=== PATIENT | male | born 1985 | race Caucasian/White ===

== ENCOUNTER 2021-12-30 21:57 | Emergency (ER) | payer SELFPAY ==
[~2021-12-30] VITALS: Ht 175.3 cm; Wt 81.7 kg
[2021-12-30] MEDS ORDERED: KETOROLAC 30 MG/ML VIAL IVP STA (22:31)
--- NOTE | 2021-12-30 22:33 | ED General ---
General Chief Complaint: General Problems/Pain Stated Complaint: DX W/ MONO/BILAT EAR PAIN Source of Information: Patient History of Present Illness Date Seen by Provider: Dec 30, 2021 Time Seen by Provider: 22:22 Initial Comments PT ARRIVES VIA POV FROM HOME C/O SEVERE SORE THROAT STATES HE BEGAN HAVING A SORE THROAT LAST Sunday12/23/21, WENT TO [facility] ON SUNDAY AND WAS DX WITH MONO. NO RX'S GIVEN NO FEVER C/O BILATERAL EAR PAIN STATES HE IS HERE TONIGHT "BECAUSE OF THE ALARMINGLY LARGE AMOUNT OF BLOOD EMANATING FROM MY THROAT" FOR THE LAST 2-3 DAYS STATES HE HAS BEEN "COUGHING UP AND THROWING UP BLOOD" NO ABDOMINAL PAIN NO ACTUAL NAUSEA STATES HE HAS BEEN TAKING 1000 MG ACETAMINOPHEN AND 1000 MG OF IBUPROFEN ALL DAY AND ALL NIGHT EVERY DAY FOR THE LAST WEEK--NO RELIEF HAS NOT BEEN EATING OR DRINKING VERY MUCH DUE TO SEVERE PAIN PT IS NOT ON ASPIRIN OR ANY BLOOD THINNERS PT IS TYPE 1 DIABETIC IN LEVEMIR AND NOVOLOG--STATES HE HAS NOT TAKEN HIS INSULIN TODAY DUE TO "LOW BLOOD SUGARS" BUT BLOOD GLUCOSE WAS 240'S TONIGHT, AFTER HE TRIED TO EAT PIZZA. HAS NOT ATTEMPTED TO FOLLOW UP WITH ANYONE SINCE SUNDAY FOR THIS PROBLEM ( NOW IS SUNDAY NIGHT) PCP: Taylor [facility] IN [place], [place]--HAD A TELEHEALTH VISIT IN OCTOBER . NO MEDICATION CHANGES. Allergies and Home Medications Allergies Coded Allergies: No Known Drug Allergies (Unverified , 12/30/21) Review of Systems Review of Systems Constitutional: see HPI; No fever; malaise, weakness EENTM: see HPI, ear pain, throat pain, throat swelling Respiratory: cough; No short of breath Cardiovascular: no symptoms reported Gastrointestinal: see HPI Genitourinary: frequency Musculoskeletal: other (BODY ACHES) Skin: no symptoms reported Psychiatric/Neurological: No Symptoms Reported Hematologic/Lymphatic: No Symptoms Reported Immunological/Allergic: no symptoms reported Past Wpfdhzo-Ddhmce-Nmtkoa Hx Patient Social History Tobacco Use?: Yes Tobacco type used: Cigarettes Substance use?: Yes Substance type: Marijuana Substance frequency: Daily Alcohol Use?: Yes Alcohol Frequency: Once in a while Immunizations Up To Date Influenza Vaccine Up-to-Date: No; Not Current Past Medical History Surgeries: No Respiratory: No Cardiac: No Neurological: No Genitourinary: No Gastrointestinal: No Musculoskeletal: No Endocrine: Yes (TYPE 1 DIABETES DX AGE 21) Diabetes, Insulin dep HEENT: No Cancer: No Psychosocial: No Integumentary: No Blood Disorders: No Family Medical History SOCIAL HISTORY: -SMOKES 1 PPD -ETOH--OCCASIONAL USE -DRUGS--REGULAR MARIJUANA USE Physical Exam Vital Signs Vital Signs - First Documented 12/30/21 22:14 Temp 36.7 Pulse 80 Resp 16 B/P (MAP) 161/93 (115) Pulse Ox 96 O2 Delivery Room Air Capillary Refill : Height, Weight, BMI Height: '" Weight: lbs. oz. kg; BMI Method: General Appearance: No Apparent Distress, WD/WN, Other (MOVES AND TALKS SLOWLY, FREQUENT SIGHING) HEENT: PERRL/EOMI; No Photophobia; Tonsillar Exudate, Tonsillar Enlargement, Other (TM'S SCLEROTIC. NO ERYTHEMA NOTED. RIGHT TONSIL IS ENLARGED 2+/4 IN SIZE, VERY CRYPTIC WITH EXTENSIVE EXUDATE. LEFT TONSIL IS COMPLETELY OBSCURED BY A VERY LARGE CLOT. NO ACTIVE BLEEDING NOTED AT THIS TIME. NO EVIDENCE OF PERITONSILLAR ABSCESS AT THIS TIME. TONSILS DO NOT TOUCH. UVULA IS MIDLINE. VOICE IS MUFFLED. ) Neck: Supple, Lymphadenopathy (L), Lymphadenopathy (R) Respiratory: Normal Breath Sounds, No Accessory Muscle Use, No Respiratory Distress Cardiovascular: No Murmur Gastrointestinal: Non Tender, Soft Extremity: Normal Capillary Refill, No Pedal Edema Neurologic/Psychiatric: Alert, Oriented x3, No Motor/Sensory Deficits, field service supervisor II- XII Norm as Tested Skin: Warm/Dry, Pallor Focused Exam Lactate Level 12/30/21 22:58: Lactic Acid Level 1.49 Lactic Acid Level Laboratory Tests Test 12/30/21 22:58 Lactic Acid Level 1.49 MMOL/L (0.50-2.00) Progress/Results/Core Measures Suspected Sepsis SIRS Temperature: Pulse: Respiratory Rate: Laboratory Tests 12/30/21 22:58: White Blood Count 18.4H Blood Pressure / Mean: 12/30/21 22:58: Lactic Acid Level 1.49 Laboratory Tests 12/30/21 22:58: Creatinine 0.82, Platelet Count 411H, Total Bilirubin 0.9 Results/Orders Lab Results Laboratory Tests Test 12/30/21 22:58 12/30/21 23:08 12/31/21 00:35 12/31/21 02:44 Range/Units White Blood Count 18.4 H 4.3-11.0 10^3/uL Red Blood Count 4.91 4.30-5.52 10^6/uL Hemoglobin 13.5 13.3-17.7 g/dL Hematocrit 40 40-54 % Mean Corpuscular Volume 82 80-99 fL Mean Corpuscular Hemoglobin 28 25-34 pg Mean Corpuscular Hemoglobin Concent 33 32-36 g/dL Red Cell Distribution Width 14.1 10.0-14.5 % Platelet Count 411 H 130-400 10^3/uL Mean Platelet Volume 9.9 9.0-12.2 fL Immature Granulocyte % (Auto) 1 % Neutrophils (%) (Auto) 52 42-75 % Lymphocytes (%) (Auto) 34 12-44 % Monocytes (%) (Auto) 13 H 0-12 % Eosinophils (%) (Auto) 0 0-10 % Basophils (%) (Auto) 1 0-10 % Neutrophils # (Auto) 9.7 H 1.8-7.8 10^3/uL Lymphocytes # (Auto) 6.2 H 1.0-4.0 10^3/uL Monocytes # (Auto) 2.4 H 0.0-1.0 10^3/uL Eosinophils # (Auto) 0.0 0.0-0.3 10^3/uL Basophils # (Auto) 0.1 0.0-0.1 10^3/uL Immature Granulocyte # (Auto) 0.1 0.0-0.1 10^3/uL Neutrophils % (Manual) 61 % Lymphocytes % (Manual) 18 % Monocytes % (Manual) 8 % Eosinophils % (Manual) 1 % Band Neutrophils 1 % Atypical Lymphocytes 11 % Poikilocytosis SLIGHT Sodium Level 133 L 135-145 MMOL/L Potassium Level 3.6 3.6-5.0 MMOL/L Chloride Level 95 L 98-107 MMOL/L Carbon Dioxide Level 22 21-32 MMOL/L Anion Gap 16 H 5-14 MMOL/L Blood Urea Nitrogen 8 7-18 MG/DL Creatinine 0.82 0.60-1.30 MG/DL Estimat Glomerular Filtration Rate 118 BUN/Creatinine Ratio 10 Glucose Level 259 H 70-105 MG/DL Lactic Acid Level 1.49 0.50-2.00 MMOL/L Calcium Level 9.3 8.5-10.1 MG/DL Corrected Calcium 9.4 8.5-10.1 MG/DL Total Bilirubin 0.9 0.1-1.0 MG/DL Aspartate Amino Transf (AST/SGOT) 153 H 5-34 U/L Alanine Aminotransferase (ALT/SGPT) 188 H 0-55 U/L Alkaline Phosphatase 165 H 40-136 U/L Total Protein 7.1 6.4-8.2 GM/DL Albumin 3.9 3.2-4.5 GM/DL Beta-Hydroxybutyrate (Chem panel) 1.71 H 0.00-0.27 MMOL/L Procalcitonin 0.84 H <0.10 NG/ML Monoscreen POSITIVE H NEGATIVE Glucometer 240 H 208 H 70-110 MG/DL Urine Color YELLOW Urine Clarity CLEAR Urine pH 6.0 5-9 Urine Specific Robbins <=1.005 1.016-1.022 Urine Protein NEGATIVE NEGATIVE Urine Glucose (UA) 2+ H NEGATIVE Urine Ketones 2+ H NEGATIVE Urine Nitrite NEGATIVE NEGATIVE Urine Bilirubin NEGATIVE NEGATIVE Urine Urobilinogen 0.2 < = 1.0 MG/DL Urine Leukocyte Esterase NEGATIVE NEGATIVE Urine RBC (Auto) NEGATIVE NEGATIVE Urine RBC NONE /HPF Urine WBC NONE /HPF Urine Crystals NONE /LPF Urine Bacteria NEGATIVE /HPF Urine Casts NONE /LPF Urine Mucus NEGATIVE /LPF Urine Culture Indicated NO Urine Opiates Screen NEGATIVE NEGATIVE Urine Oxycodone Screen NEGATIVE NEGATIVE Urine Methadone Screen NEGATIVE NEGATIVE Urine Propoxyphene Screen NEGATIVE NEGATIVE Urine Barbiturates Screen NEGATIVE NEGATIVE Ur Tricyclic Antidepressants Screen NEGATIVE NEGATIVE Urine Phencyclidine Screen NEGATIVE NEGATIVE Urine Amphetamines Screen NEGATIVE NEGATIVE Urine Methamphetamines Screen NEGATIVE NEGATIVE Urine Benzodiazepines Screen NEGATIVE NEGATIVE Urine Cocaine Screen NEGATIVE NEGATIVE Urine Cannabinoids Screen POSITIVE H NEGATIVE My Orders Orders - KATELIN,SU K DO Accucheck Stat ONCE (12/30/21 22:31) Ed Iv/Invasive Line Start (12/30/21 22:31) Monitor-Rhythm Ecg Trace Only (12/30/21 22:31) Cbc With Automated Diff (12/30/21 22:31) Comprehensive Metabolic Panel (12/30/21 22:31) Lactic Acid Analyzer (12/30/21 22:31) Monotest (12/30/21 22:31) Procalcitonin (Pct) (12/30/21 22:31) Ed Iv/Invasive Line Start (12/30/21 22:31) Ns Iv 1000 Ml (Sodium Chloride 0.9%) (12/30/21 22:45) Ketorolac Injection (Toradol Injection) (12/30/21 22:31) Manual Differential (12/30/21 22:58) Beta Hydroxybutyrate (12/30/21 23:58) Ed Iv/Invasive Line Start (12/30/21 23:58) Ns Iv 1000 Ml (Sodium Chloride 0.9%) (12/31/21 00:00) Ct Neck (Soft Tissue) W (12/31/21 00:01) Drug Screen Stat (Urine) (12/31/21 00:25) Ua Culture If Indicated (12/31/21 00:25) Iohexol Injection (Omnipaque 350 Mg/Ml 1 (12/31/21 00:30) Received Contrast (Hold Metformin- Contr (12/31/21 00:30) Sodium Chloride Flush (Catheter Flush Sy (12/31/21 00:30) Ns (Ivpb) (Sodium Chloride 0.9% Ivpb Bag (12/31/21 00:30) Accucheck Stat ONCE (12/31/21 02:20) Ed Iv/Invasive Line Start (12/31/21 02:20) Fentanyl Inj (Sublimaze Injection) (12/31/21 02:20) Ns Iv 1000 Ml (Sodium Chloride 0.9%) (12/31/21 02:30) Medications Given in ED Current Medications Medications Dose Ordered Sig/Zhou Route Start Time Stop Time Status Last Admin Dose Admin Iohexol 100 ml ONCE ONCE IV 12/31/21 00:30 12/31/21 00:31 DC 12/31/21 00:30 75 ML Sodium Chloride 10 ml NEEDED PRN IV 12/31/21 00:30 12/31/21 00:30 10 ML Sodium Chloride 100 ml ONCE ONCE IV 12/31/21 00:30 12/31/21 00:31 DC 12/31/21 00:30 80 ML Vital Signs/I&O 12/30/21 3 22:14 03:44 Temp 36.7 36.7 Pulse 80 82 Resp 16 16 B/P (MAP) 161/93 (115) 148/75 Pulse Ox 96 95 O2 Delivery Room Air Room Air Capillary Refill : Progress Note : Progress Note GIVEN IV FLUIDS AND TORADOL, AND LATER FENTANYL FOR PAIN REPEAT ACCUCHECK 208 NO DETERIORATION IN PT'S CONDITION DURING ER STAY. DELAY DUE TO PT INDECISIVE ABOUT WANTING TO BE TRANSFERRED AND WHERE TO AND HOW HE WOULD BE TRANSPORTED. Diagnostic Imaging Comments CT NECK SOFT TISSUES--LEFT > RIGHT PERITONSILLAR HYPERDENSE COLLECTIONS, LEFT SIDED COLLECTION HAS SMALL AMOUNT OF GAS AND APPEARS TO COMMUNICATE WITH THE OROPHARYNX. MINIMAL ENHANCEMENT OF THE HOLGUIN. ASSOCIATED EXTENSIVE BILATERAL ADENOPATHY--PER [facility] VIA FAX AT 0102 Departure Impression Primary Impression: Mononucleosis Additional Impressions: IDDM TYPE 1 Hyperglycemia due to type 1 diabetes mellitus Ketosis due to diabetes Mononucleosis, infectious, with hepatitis Hemorrhage of left tonsil Dehydration Departure-Patient Inst. Referrals: NO,LOCAL PHYSICIAN (PCP/Family) Primary Care Physician SU THOMASON DO Dec 30, 2021 22:33
[2021-12-30] MEDS ORDERED: NS IV 1000 ML 1,000 ML IV SCH (22:45)
[2021-12-30 23:12] LABS: BASOPHILS # (AUTO) 0.1 10^3/uL (0.0-0.1); BASOPHILS % (AUTO) 1 % (0-10); EOSINOPHILS % (AUTO) 0 % (0-10); HEMATOCRIT 40 % (40-54); HEMOGLOBIN 13.5 g/dL (13.3-17.7); LYMPHOCYTES # (AUTO) 6.2 10^3/uL (1.0-4.0); LYMPHOCYTES % (AUTO) 34 % (12-44); MEAN CORPUSCULAR HEMOGLOBIN 28 pg (25-34); MEAN CORPUSCULAR HGB CONC 33 g/dL (32-36); MEAN CORPUSCULAR VOLUME 82 fL (80-99); MEAN PLATELET VOLUME 9.9 fL (9.0-12.2); MONOCYTES # (AUTO) 2.4 10^3/uL (0.0-1.0); MONOCYTES % (AUTO) 13 % (0-12); NEUTROPHILS # (AUTO) 9.7 10^3/uL (1.8-7.8); NEUTROPHILS % (AUTO) 52 % (42-75); PLATELET COUNT 411 10^3/uL (130-400); WHITE BLOOD COUNT 18.4 10^3/uL (4.3-11.0)
[2021-12-30 23:26] LABS: ALBUMIN 3.9 GM/DL (3.2-4.5); POTASSIUM 3.6 MMOL/L (3.6-5.0)
[2021-12-30 23:27] LABS: CALCIUM 9.3 MG/DL (8.5-10.1)
[2021-12-30 23:28] LABS: TOTAL PROTEIN 7.1 GM/DL (6.4-8.2)
[2021-12-30 23:30] LABS: BILIRUBIN,TOTAL 0.9 MG/DL (0.1-1.0)
[2021-12-30 23:32] LABS: CREATININE SERUM 0.82 MG/DL (0.60-1.30)
[2021-12-30 23:35] LABS: ATYPICAL LYMPHOCYTES 11 %; BAND NEUTROPHILS 1 %; EOSINOPHILS % (MANUAL) 1 %; LYMPHOCYTES % (MANUAL) 18 %; MONOCYTES % (MANUAL) 8 %; NEUTROPHILS % (MANUAL) 61 %; POIKILOCYTOSIS SLIGHT
[2021-12-31] MEDS ORDERED: NS 100 ML (IVPB) BAG IV ONE (00:30)
[2021-12-31] MEDS ORDERED: HOLD METFORMIN - RECEIVED CONTRAST 20 ML VIAL IV SCH (00:30)
[2021-12-31] MEDS ORDERED: IOHEXOL 350 MG/ML 100 ML (OMNIPAQUE 350) VIAL IV ONE (00:30)
[2021-12-31] MEDS ORDERED: CATHETER FLUSH 10 ML SYR IV PRN (00:30)
[2021-12-31 00:47] LABS: BILIRUBIN,URINE NEGATIVE (NEGATIVE); CLARITY,URINE CLEAR; COLOR,URINE YELLOW; GLUCOSE, URINE (UA) 2+ (NEGATIVE); KETONES,URINE 2+ (NEGATIVE); LEUKOCYTE ESTERASE ,URINE NEGATIVE (NEGATIVE); NITRITE,URINE NEGATIVE (NEGATIVE); PROTEIN,URINE NEGATIVE (NEGATIVE)
[2021-12-31 00:56] LABS: BACTERIA,URINE NEGATIVE /HPF
[2021-12-31 01:00] LABS: AMPHETAMINE SCREEN, URINE NEGATIVE (NEGATIVE); BARBITURATE SCREEN URINE NEGATIVE (NEGATIVE); BENZODIAZEPINES SCREEN URINE NEGATIVE (NEGATIVE); CANNABINOID SCREEN, URINE POSITIVE (NEGATIVE); COCAINE SCREEN URINE NEGATIVE (NEGATIVE); METHADONE STAT NEGATIVE (NEGATIVE); METHAMPHETAMINE SCREEN URINE S NEGATIVE (NEGATIVE); OPIATE SCREEN URINE NEGATIVE (NEGATIVE); OXYCODONE STAT NEGATIVE (NEGATIVE); PROPOXYPHENE STAT NEGATIVE (NEGATIVE); TRICYCLIC ANTIDEPRESSANTS SCRE NEGATIVE (NEGATIVE)
[2021-12-31] MEDS ORDERED: fentaNYL INJ 100 MCG/2 ML AMP IVP STA (02:20)
[2021-12-31] MEDS ORDERED: NS IV 1000 ML 1,000 ML IV SCH ×2 (02:30)
[2021-12-31 03:44] VITALS: BP 148/75
--- NOTE | 2021-12-31 07:15 | Diagnostic Imaging Report ---
PROCEDURE: CT neck soft tissue with contrast. TECHNIQUE: Multiple contiguous axial images were obtained through the neck after the administration of contrast. Auto Exposure Controls were utilized during the CT exam to meet ALARA standards for radiation dose reduction. INDICATION: Recent mononucleosis infection. Throat pain. Ear infections. COMPARISON: None. FINDINGS: Hypoattenuating collections are seen in the bilateral peritonsillar soft tissues, with the larger left measuring 2.2 x 1.4 cm and the smaller right measuring 1.1 x 0.7 cm. Air is seen within both collections. There is mild airway narrowing at the level of the oropharynx. No airway compromise is seen in the hypopharynx. No retropharyngeal or prevertebral fluid collections are seen. The laryngeal structures are symmetric and unremarkable. Bilateral cervical lymphadenopathy is seen, with the largest in the left level 2 station measuring 2.4 x 2.1 cm. The parotid, submandibular and thyroid gland are unremarkable. The vascular structures the neck demonstrate no evidence of high-grade stenosis on this nondedicated exam. The visualized lung apices are clear. The visualized intracranial contents demonstrate no evidence of pathologic intracranial enhancement or intracranial mass effect. Visualized orbital contents are unremarkable. The visualized paranasal sinuses are clear. The mastoids and middle ears are clear. No acute osseous abnormality in the cervical spine. IMPRESSION: 1. Findings concerning for bilateral tonsillar abscesses with the left larger than the right. This results in mild narrowing of the airway at the oropharynx. Recommend surgical consultation and close follow-up. 2. Bilateral cervical lymphadenopathy. Agree with overnight report. Dictated by: Dictated on workstation # [id number]
== END 2021-12-31 03:50 | disposition short-term general hospital (02) ==
LOC: EDUNIT# 21:57 → ER 22:00
DX: B27.99 Infectious mononucleosis, unspecified with other complication (principal); E10.10 Type 1 diabetes mellitus with ketoacidosis without coma; E86.0 Dehydration; J35.8 Other chronic diseases of tonsils and adenoids; F17.210 Nicotine dependence, cigarettes, uncomplicated
CPT/HCPCS: 36415; 70491; 80053; 80306; 81000; 82010; 82947; 83605; 84145; 85007; 85027; 86308; 93041